=== PATIENT | female | born 1980 | race American Indian/Alaskan Native ===

== ENCOUNTER 2018-01-14 01:28 | Emergency (ER) | payer OTHER ==
[2018-01-14 01:36] VITALS: BP 114/61
[2018-01-14] MEDS ORDERED: PEPCID ONE (01:37)
[2018-01-14] MEDS ORDERED: BENADRYL ONE (01:37)
[2018-01-14] MEDS ORDERED: BENADRYL IM ONE (01:46)
[2018-01-14] MEDS ORDERED: PEPCID PO ONE ×2 (01:46→02:13)
[2018-01-14] MEDS ORDERED: ATARAX PO ONE (02:14)
--- NOTE | 2018-01-14 03:20 | Emergency Department Report ---
ED Allergic Reaction HPI - General Chief complaint: Allergic Reaction Stated complaint: ALLERGIC REACTION Time Seen by Provider: 01/14/18 03:20 Source: patient Mode of arrival: Ambulatory Limitations: No Limitations - History of Present Illness Initial Comments: 37-year-old female past medical history none presents with complaint of sudden episode of hives and slight lip swelling which started earlier this evening at approximately 12 AM. Patient denies any new allergens or new cosmetics new pets recent travel or new fabrics new soaps. Patient states that she did eat turkey meatballs marinara and did use an insecticide in her closet which revealed only 2 things which she has used that are new within the last 24 hours. Patient denies ever having any allergies to any other substances. Patient states that she had itchy hives all over his skin and did experience some upper lip swelling. Has since subsided. She was given combination of Decadron Benadryl and Pepcid when arriving in triage. Did not take anything at home. Patient is speaking in full sentences awake alert and oriented 3 no audible wheezing or stridor. Denies any recent travel. MD Complaint: allergic reaction, hives - Related Data Previous Rx's Medication Instructions Recorded Last Taken Type EPINEPHrine [Epipen] 0.3 mg IJ ONCE PRN #1 auto.injct 01/14/18 Unknown Rx Famotidine [Pepcid] 20 mg PO BID PRN #30 tablet 01/14/18 Unknown Rx Loratadine [Claritin] 10 mg PO DAILY #30 tablet 01/14/18 Unknown Rx Prednisone [predniSONE 10 mg 10 mg PO .TAPER #1 tab.ds.pk 01/14/18 Unknown Rx (6-Day Pack, 21 Tabs)] hydrOXYzine HCL [Atarax] 25 mg PO Q6HR PRN #20 tablet 01/14/18 Unknown Rx Allergies Allergy/AdvReac Type Severity Reaction Status Date / Time No Known Allergies Allergy Verified 01/14/18 01:43 ED Review of Systems ROS: Stated complaint: ALLERGIC REACTION Other details as noted in HPI Constitutional: denies: chills, fever Eyes: denies: eye pain, eye discharge, vision change ENT: denies: ear pain, throat pain Respiratory: denies: cough, shortness of breath, wheezing Cardiovascular: denies: chest pain, palpitations Endocrine: no symptoms reported Gastrointestinal: denies: abdominal pain, nausea, diarrhea Genitourinary: denies: urgency, dysuria, discharge Musculoskeletal: denies: back pain, joint swelling, arthralgia Skin: rash, pruritus. denies: lesions Neurological: denies: headache, weakness, paresthesias Psychiatric: denies: anxiety, depression Hematological/Lymphatic: denies: easy bleeding, easy bruising ED Past Medical Hx - Past Medical History Previous Medical History?: No - Surgical History Past Surgical History?: No - Social History Smoking Status: Current Every Day Smoker Substance Use Type: Alcohol, Marijuana - Medications Home Medications: Home Medications Medication Instructions Recorded Confirmed Last Taken Type EPINEPHrine [Epipen] 0.3 mg IJ ONCE PRN #1 auto.injct 01/14/18 Unknown Rx Famotidine [Pepcid] 20 mg PO BID PRN #30 tablet 01/14/18 Unknown Rx Loratadine [Claritin] 10 mg PO DAILY #30 tablet 01/14/18 Unknown Rx Prednisone [predniSONE 10 mg 10 mg PO .TAPER #1 tab.ds.pk 01/14/18 Unknown Rx (6-Day Pack, 21 Tabs)] hydrOXYzine HCL [Atarax] 25 mg PO Q6HR PRN #20 tablet 01/14/18 Unknown Rx ED Physical Exam - General Limitations: No Limitations General appearance: alert, in no apparent distress - Head Head exam: Present: atraumatic, normocephalic - Eye Eye exam: Present: normal appearance - ENT ENT exam: Present: mucous membranes moist, other (slight upper lip swelling on exam) - Neck Neck exam: Present: normal inspection - Respiratory Respiratory exam: Present: normal lung sounds bilaterally. Absent: respiratory distress - Cardiovascular Cardiovascular Exam: Present: regular rate, normal rhythm. Absent: systolic murmur, diastolic murmur, rubs, gallop - GI/Abdominal GI/Abdominal exam: Present: soft, normal bowel sounds - Extremities Exam Extremities exam: Present: normal inspection - Back Exam Back exam: Present: normal inspection - Neurological Exam Neurological exam: Present: alert, oriented X3, normal gait - Psychiatric Psychiatric exam: Present: normal affect, normal mood - Skin Skin exam: Present: warm, dry, intact, normal color, urticaria. Absent: rash ED Course Vital Signs 01/14/18 01:27 Temperature 98.2 F Pulse Rate 72 Respiratory 18 Rate Blood Pressure 114/61 O2 Sat by Pulse 95 Oximetry ED Medical Decision Making - Medical Decision Making A/P: Possible food allergy 1-EpiPen when necessary for anaphylaxis, prednisone Dosepak, hydroxyzine when necessary, Claritin, Benadryl when necessary 2-vital signs stable for discharge 3-educated patient on signs and symptoms of angioedema and advised her to return to the ED if she notices any worsening symptoms 4- patient referred to primary care and an director of social work 5- lip swelling and urticaria have significantly improved before discharge. Patient states she feels significantly better Critical care attestation.: If time is entered above; I have spent that time in minutes in the direct care of this critically ill patient, excluding procedure time. ED Disposition Clinical Impression: Allergic reaction Qualifiers: Encounter type: initial encounter Qualified Code(s): T78.40XA - Allergy, unspecified, initial encounter Disposition: TO HOME OR SELFCARE Is pt being admited?: No Does the pt Need Aspirin: No Condition: Stable Instructions: Epinephrine (Injection), Urticaria (ED), Food Allergy (ED), Anaphylaxis (ED), Allergies (ED), Angioedema (ED) Prescriptions: EPINEPHrine [Epipen] 0.3 mg IJ ONCE PRN #1 auto.injct PRN Reason: Angioedema Famotidine [Pepcid] 20 mg PO BID PRN #30 tablet PRN Reason: Allergic Reaction hydrOXYzine HCL [Atarax] 25 mg PO Q6HR PRN #20 tablet PRN Reason: Itching Loratadine [Claritin] 10 mg PO DAILY #30 tablet Prednisone [predniSONE 10 mg (6-Day Pack, 21 Tabs)] 10 mg PO .TAPER #1 tab.ds.pk Referrals: [facility] [Provider Group] - 3-5 Days [facility] [Outside] - 3-5 Days [facility] [Provider Group] - 3-5 Days Forms: Work/School Release Form(ED) Time of Disposition: 05:06
== END 2018-01-14 05:27 | disposition home or self-care (01) ==
LOC: ED 01:28
DX: T78.40XA Allergy, unspecified, initial encounter (principal); Y92.89 Other specified places as the place of occurrence of the external cause; F17.200 Nicotine dependence, unspecified, uncomplicated; F12.10 Cannabis abuse, uncomplicated
CPT/HCPCS: 96372; 99282; J1200; J2930

== ENCOUNTER 2018-01-31 08:19 | Emergency (ER) | payer OTHER ==
--- NOTE | 2018-01-31 10:43 | Emergency Department Report ---
HPI - General Chief Complaint: Allergic Reaction Time Seen by Provider: 01/31/18 10:38 - HPI HPI: Patient reports she was seen and treated in the ED 2 weeks ago for allergic reaction. She complained of facial rash and generalized hives that started yesterday after eating strawberries and grapes ED Past Medical Hx - Past Medical History Previous Medical History?: No - Surgical History Past Surgical History?: Yes Additional Surgical History: abortions X2 - Social History Smoking Status: Current Some Day Smoker Substance Use Type: None - Medications Home Medications: Home Medications Medication Instructions Recorded Confirmed Last Taken Type EPINEPHrine [Epipen] 0.3 mg IJ ONCE PRN #1 auto.injct 01/14/18 Unknown Rx Famotidine [Pepcid] 20 mg PO BID PRN #30 tablet 01/14/18 Unknown Rx Loratadine [Claritin] 10 mg PO DAILY #30 tablet 01/14/18 Unknown Rx Prednisone [predniSONE 10 mg 10 mg PO .TAPER #1 tab.ds.pk 01/14/18 Unknown Rx (6-Day Pack, 21 Tabs)] hydrOXYzine HCL [Atarax] 25 mg PO Q6HR PRN #20 tablet 01/14/18 Unknown Rx predniSONE [Deltasone] 20 mg PO BID #10 tablet 01/31/18 Unknown Rx ED Review of Systems ROS: Stated complaint: ALLERGIC REACTION Other details as noted in HPI Constitutional: denies: chills, fever Eyes: denies: eye pain, eye discharge, vision change ENT: denies: ear pain, throat pain, hearing loss, epistaxis, congestion Respiratory: denies: cough, shortness of breath, wheezing Cardiovascular: denies: chest pain, palpitations Endocrine: no symptoms reported Gastrointestinal: denies: abdominal pain, nausea, diarrhea Genitourinary: denies: urgency, dysuria, discharge Musculoskeletal: denies: back pain, joint swelling, arthralgia Skin: rash ( facial and hives), pruritus. denies: lesions Neurological: denies: headache, weakness, paresthesias Psychiatric: denies: anxiety, depression Hematological/Lymphatic: denies: easy bleeding, easy bruising Physical Exam - Physical Exam Vital Signs: Vital Signs 01/31/18 08:46 Temperature 99.0 F General: Alert and oriented, well nourished and developed, no distress noted Physical Exam: HEENT: normal cephalic, external ear normal, normal oropharynx, mucus membrane moist, no drooling, trismus, tongue elevation, Resp: lungs CTA, even and unlabored, no wheezes, rales or rhonchi Cardio: heart sounds normal, S1,S2, no ectopy, murmurs or gallops Skin: maculopapular rash to right facial area, raised pink-red & well demarcated blanching lesions to right inner thigh, no weeping, drainage or erythema ED Course Vital Signs 01/31/18 08:46 Temperature 99.0 F ED Medical Decision Making - Lab Data Temp Pulse Resp BP Pulse Ox 99.0 F 01/31/18 08:46 - Medical Decision Making During the course of ED, all other systems were unremarkable except for documentation in HPI. Patient was instructed to take previous prescriptions of Pepcid, Claritin and Hydroxyzine as needed for symptomatic relief. She was sent home with a prescription for Prednisone, instructed to follow up with scheduled appointment with the garden center manager today, she verbalized understanding - Differential Diagnosis Contact Dermatitis, Allergies Critical care attestation.: If time is entered above; I have spent that time in minutes in the direct care of this critically ill patient, excluding procedure time. ED Disposition Clinical Impression: Allergic dermatitis Disposition: DC-01 TO HOME OR SELFCARE Is pt being admited?: No Does the pt Need Aspirin: No Condition: Stable Instructions: Allergies (ED) Additional Instructions: Take medication as directed. Follow up with schedule appointment with the garden center manager today. Return back to the ED for worsening symptoms or concerns Prescriptions: predniSONE [Deltasone] 20 mg PO BID #10 tablet Referrals: PRIMARY CARE, [Primary Care Provider] - 3-5 Days Forms: Work/School Release Form(ED) Time of Disposition: 10:42
== END 2018-01-31 11:07 | disposition home or self-care (01) ==
LOC: ED 08:19
DX: L23.9 Allergic contact dermatitis, unspecified cause (principal); F17.200 Nicotine dependence, unspecified, uncomplicated
CPT/HCPCS: 99282